=== PATIENT | male | born 1960 | race Two or more races ===

== ENCOUNTER 2018-05-06 10:13 | Emergency (ER) | payer OTHER ==
[~2018-05-06] VITALS: Ht 172.7 cm; Wt 102.1 kg
== END 2018-05-06 16:25 | disposition home or self-care (01) ==
LOC: ER 10:13
DX: I16.0 Hypertensive urgency (principal); I10 Essential (primary) hypertension

== ENCOUNTER 2020-08-17 11:13 | Emergency (ER) | payer OTHER ==
[~2020-08-17] VITALS: Ht 172.7 cm; Wt 104.3 kg
== END 2020-08-17 19:17 | disposition home or self-care (01) ==
LOC: ER 11:13
DX: M79.661 Pain in right lower leg (principal)

== ENCOUNTER 2020-08-18 08:46 | Emergency (ER) | payer OTHER ==
[~2020-08-18] VITALS: Ht 172.7 cm; Wt 104.3 kg
== END 2020-08-18 13:47 | disposition home or self-care (01) ==
LOC: ER 08:46
DX: M79.661 Pain in right lower leg (principal); M54.5 Low back pain

== ENCOUNTER 2020-08-21 11:19 | Outpatient (CLI) | payer OTHER | END 2020-08-21 12:39 | disposition home or self-care (01) | LOC: SONOGRAMA 11:19 | PROVIDERS: ATTEND General Practice | DX: M79.604 Pain in right leg (principal) ==

== ENCOUNTER 2020-09-07 16:38 | Outpatient (CLI) | payer OTHER | END 2020-09-07 16:40 | disposition home or self-care (01) | LOC: LAB 16:38 | PROVIDERS: ATTEND Orthopaedic Surgery | DX: M25.462 Effusion, left knee (principal) ==